=== PATIENT | female | born 1945 | race Caucasian/White ===

== ENCOUNTER 2022-11-15 06:29 | Inpatient (IN) | payer MEDICARE, OTHER, SELFPAY ==
[2022-10-27 12:47] VITALS: BMI 29.0
[2022-10-28 09:44] VITALS: BMI 29.0
[2022-11-15] VITALS (13 sets, daily range): BP systolic 84–139; BP diastolic 38–66; PULSE 67–95; RESP 12–18; TEMP 35.6–36.4; O2SAT 95–100; BMI 29.0
[2022-11-15] MEDS: LACTATED RINGERS 1,000 ML 42 ML IV (07:33)
[2022-11-15] MEDS: VANCOMYCIN 1,000 MG/200 ML PIGGYBACK 200 MG IV (07:38)
--- NOTE | 2022-11-15 07:47 | DI.RAD.S_ITS ---
PROCEDURE: XR HIP W PEL IF DONE RT 2V INDICATIONS: inner op TECHNIQUE: 4 intraoperative fluoroscopic images obtained. COMPARISON: [facility], [place], XR HIP W PEL IF DONE RT 2V, 11/15/2022, 11:01. FINDINGS: Four intraoperative fluoroscopic images from right hip arthroplasty. IMPRESSION: Intraprocedural fluoroscopy was provided for guidance and anatomical localization. Please see the procedure report for further details. Dictated by: Goyo Mcgraw M.D. on 11/15/2022 at 15:39 Approved by: Goyo Mcgraw M.D. on 11/15/2022 at 15:42
--- NOTE | 2022-11-15 07:47 | PM.PREOP ---
Pre-operative Note Interval Note History & Physical reviewed/Exam performed by Physician: Yes Changes to H&P: No
[2022-11-15] MEDS: CEFAZOLIN 2 GM/100 ML PREMIX 100 ML IV ×2 (07:50→15:13)
--- NOTE | 2022-11-15 07:54 | P.OP_ITS ---
Operative Date/Time/Diagnoses Date of procedure: 11/15/22 Time of procedure: 07:54 Pre-op diagnosis: Severe right hip OA and AVN Post-op diagnosis: same Procedure & Clinicians Procedure: Right total hip arthroplasty anterior approach Same procedure as scheduled: Yes Indications: The patient has had progressively worsening right hip pain with radiographic changes consistent with arthritis. Non-operative management has failed and the patient has requested total hip replacement. The risks, benefits and alternatives to surgery were discussed with the patient prior to proceeding. Risks discussed included, but were not limited to, failure to relieve pain, leg length discrepancy, dislocation, stiffness, infection, nerve damage, deep venous thrombosis, pulmonary embolism, stroke, coma, heart attack, permanent paralysis and , as well as the potential need for eventual revision of the prosthetic. Surgeon: Kathya Hernandez [employer] Technician: Melvin Jimenez Anesthesia Type: General Operative Notes Findings: Severe right hip OA with AVN, soft bone, adequate stability Closure Type: primary Specimen(s): none sent Prosthetic devices, grafts, tissues, transplants, or devices: Hernandez and nephew R3 46, dual mobility neutral liner 34 x 46, anthology size 2 standard offset, 22 by 34 dual mobility insert, 22+ 0 Oxinium head, one 6.5 mm screw Estimated Blood Loss (mL): 250 Blood products transfused: none Procedure in detail: The patient was brought to the operating room. Patient was carefully positioned in the supine position. Time-out was performed and antibiotics were given. Anesthesia was induced. She was positioned in the on the table in order to allow hyperextension of the hip. The right lower extremity was prepped and draped in a standard sterile fashion. An anterior right hip incision was made 1 fingerbreadth lateral to the anterior superior iliac spine and extended distally towards the greater trochanter. Dissection was carried out through skin and subcutaneous tissues. Superficial hemostasis was achieved. The fascia over the tensor fascia ashwin was defined and incised with a knife. Two Allis clamps were used to grasp the fascia. Tensor fascia ashwin was retracted laterally. A gelpi retractor was placed. Dissection was carried out down along the neck. The circumflex vessels were carefully identified and cauterized with the Aqua Mantis. A PA was used during the procedure was essential for intraoperative retraction and safe implantation of the components. There was good visualization of the femoral neck. A Cobra was placed superior to the neck and the gluteus fibers were carefully stripped from that superior aspect of the capsule. A 2nd retractor was placed along the inferior aspect of the neck. The rectus insertion along the capsule was partially released. A 3rd retractor that was then gently placed over the rim of the acetabulum under the rectus. Capsule was carefully incised and released from the intertrochanteric line circumferentially superior to the mid sagittal line and inferiorly to the mid sagittal line until the lesser trochanter was palpable. A tag stitch was placed both in the superior and inferior limb of the capsular insertion. Along the acetabulum capsule was also released up to the mid sagittal 12:00 position. A portion of the labrum was resected. A saw was used to perform an osteotomy at the level of the intertrochanteric line and the junction of the superior femoral neck leaving approximately 1 finger breath of residual inferior neck above the lesser trochanter. A 2nd cut was made along the femoral neck at the base of the head and a napkin ring of neck was removed. Corkscrew was placed in the femoral head and the head was removed without difficulty. Retractors were then repositioned around the acetabulum. Residual labrum was resected and additional osteophytes were removed. A reamer that was 4 mm below the templated size was placed by hand in the acetabulum and it was reamed to centralize the acetabulum. It was then reamed up to 2 under the templated size and fluoroscopy was brought in to confirm the position of the reaming and depth of reaming. I reamed 1 under the anticipated size. A trial cup was placed and noted that it was appropriately sized and fluoroscopy confirmed position and depth. The component was open and inserted without difficulty fluoroscopic imaging was used to confirm that the cup had been kwaku quately seated and was well positioned. I meticulously attempted to adjust the position in order to allow flexion and full range of motion considering the patient's severe stiff spine. It was further stabilized with a single screw. Oxinium dual mobility liner was placed. The cup was tested and noted to be stable. Attention was then directed to the femur. The femur was gently hyperextended additional capsular release was performed as needed in order to allow adequate visualization of the proximal femur with elevation of the femur. Patient was placed in a hyperextended slightly adducted position with maximum external rotation. Box osteotome was used to check for any residual neck as well as sclerotic bone along the trochanter. [employer] pepper was placed in the femur. Additional broaching was performed. Canal finder was used to determine the alignment of the canal and position. Size 1 broach was placed. The canal was then appropriately broached up to the templated size as long as there was adequate stability of the broach and serial advancement of the broach without excessive impingement. Specific attention was directed at avoiding varus attempting to direct the distal aspect of the broach more anteriorly and avoiding excessive anteversion. She had a fairly small femur. Trial reduction showed acceptable range of motion, good stability, no posterior impingement, synagogue of leg length and appropriate lateral shuck. I also hyperflexed the hip and checked that there was no impingement anteriorly and there was good stability with flexion, adduction and internal rotation. Marcaine and Exparel were injected. The stem was placed without difficulty. Repeat trial reduction and x-ray showed acceptable overall position, length, and no evidence of the femoral fracture. Final head was placed. Wound was meticulously irrigated with normal saline. The hip was reduced and additional Exparel and Marcaine were injected. The capsule was closed with interrupted nonabsorbable sutures. The fascia of the tensor was closed with interrupted and running Vicryl. No drain was placed. Any tensor fascia ashwin muscle that appeared to be contused or injured which was a minimal amount was carefully resected. Capsule around the tensor was injected with Exparel and Marcaine. The skin was closed with barbed stitches for the subcutaneous tissue and skin. We also used surgical glue. The wound was dressed sterilely. Brief Betadine soak was also used and was meticulously irrigated with normal saline. Patient was transferred to recovery room in satisfactory condition. Complications: none Post-operative Condition: stable Disposition: Acute Care Plan for aftercare: The patient will be maintained on a standard total hip replacement protocol with weight bearing as tolerated and anterior hip precautions. The patient will receive Aspirin and sequential compression devices for DVT prophylaxis. The patient will be discharged home when safe for the home environment.
[2022-11-15] MEDS: TRANEXAMIC ACID 1,000 MG VIAL 2000 MG INJ ×2 (07:59→10:14)
--- NOTE | 2022-11-15 08:21 | SUR.OPER ---
Patient supine on padded [place] table, one arm on padded arm board at <90, other arm padded and secured with tape across patient's chest, both legs secured in padded traction boots and positioned per surgeon, padded post at patient's groin, pressure points checked and padded.
[2022-11-15] MEDS: BUPIVACAINE LIPOSOME 266 MG/20 ML VIAL INJ (08:33)
[2022-11-15] MEDS: BUPIVACAINE 0.25% (PF) 60 ML, EPINEPHrine 0.3 MG INJ (08:34)
[2022-11-15] MEDS: ACETAMINOPHEN IV 1,000 MG/100 ML VIAL 400 MG IV (08:41)
[2022-11-15] MEDS: SODIUM CHLORIDE IRRIG SOLUTION 250 ML, POVIDONE-IODINE SPONGE STICKS 1 APPLIC IRR (10:37)
--- NOTE | 2022-11-15 11:00 | DI.RAD.S_ITS ---
PROCEDURE: XR HIP W PEL IF DONE RT 2V INDICATIONS: RIGHT ANTERIOR HIP POST OP TECHNIQUE: AP pelvis and lateral view of the right hip acquired. COMPARISON: [facility], [place], XR HIP W PEL IF DONE RT 2V, 11/15/2022, 9:15. FINDINGS: Bones: Patient is status post right hip arthroplasty, with hardware components in expected positions. The hip joint appears congruent. The visualized bony structures appear intact. Soft tissues: Overlying postoperative changes are noted. No suspicious soft tissue densities. IMPRESSION: Expected postop appearance of a right hip arthroplasty. Dictated by: Hosea Garcia M.D. on 11/15/2022 at 14:13 Approved by: Hosea Garcia M.D. on 11/15/2022 at 14:13
[2022-11-15] MEDS: HYDROMORPHONE 2 MG INJ IV (11:04)
[2022-11-15] MEDS: fentaNYL 100 MCG/2 ML INJ (11:06)
[2022-11-15] MEDS: OXYCODONE IR 5 MG TABLET PO ×2 (11:08→15:14)
[2022-11-15] MEDS: ONDANSETRON 4 MG/2 ML INJ IV (11:10)
[2022-11-15] MEDS: hydrOXYzine pamoate 25 MG CAPSULE PO (11:29)
--- NOTE | 2022-11-15 11:45 | SUR.PHASEI ---
Pt bladder scanned before leaving PACU with amt. 260mls. Pt does not have the urge to void at this time.
--- NOTE | 2022-11-15 12:12 | PC.NURSE ---
Pt to room 225 via bed from PACU. Pt awake, alert, and oriented. Pt denies pain or nausea. IV infusing as ordered. SCD's on and running. Pt oriented to room, call light, tv controls, and bed controls. Family is at the bedside. Bed alarm on for safety-Pt agrees to call for assistance as needed and to not get up without help.
[2022-11-15] MEDS: LACTATED RINGERS 1,000 ML 100 ML IV ×2 (12:32→21:33)
[2022-11-15] MEDS: IBUPROFEN 400 MG TABLET PO ×3 (12:33→21:20)
--- NOTE | 2022-11-15 14:56 | PT.IIE ---
Current Diagnoses Unilateral primary osteoarthritis, right hip (11/15/22) Surgery Performed Operation Date: 11/15/22 07:45 Actual Procedures p Total Hip Arthroplasty/Anterior Approach(Right) - Kathya Hernandez MD Surgical History (Last Updated 10/27/22 @ 13:28 by Anna Zepeda, KYLEE) History of hysterectomy History of lumbar fusion History of right oophorectomy History of total left knee replacement Hx of breast reduction, elective Hx of fusion of cervical spine Medical History (Last Updated 10/28/22 @ 08:42 by Manda Juan RN) Diabetes GERD (gastroesophageal reflux disease) High triglycerides History of loya Hx of Sjogren's disease Hypoxia ELEUTERIO treated with BiPAP Oxygen dependent PMR (polymyalgia rheumatica) Physical Therapy Inpatient Evaluation/Re-Eval M1 PT/OT-IP Prior Functional Status Start: 11/15/22 15:57 Freq: NEEDED Status: Active Protocol: Document 11/15/22 14:56 AB (Rec: 11/15/22 16:22 AB [id number]) Medical Review Prior Functional Status Medical History Reviewed Yes Communication able to make needs known Mobility and Gait pt stated that she is modified independent with all mobilities and ambulation without AD indoors but uses a 4WW for outdoor mobility Social History Household Members spouse,children Living Arrangements Mobile home Number of Floors (Floors) One Floor Number of Stairs To Enter/Railing? ramp to enter Home Environment Standard Height Toilet,Walk in Shower,Built-In Shower Seat Home Equipment Front Wheel Walker,Four Wheel Walker,Hand Held Shower Additional Social History Comment pt has her spouse and daughter to assist her at home M2 PT-IP Current Condition Start: 11/15/22 15:57 Freq: NEEDED Status: Active Protocol: Document 11/15/22 14:56 AB (Rec: 11/15/22 16:22 AB [id number]) Physical Therapy Current Condition Current Condition Evaluation Date 11/15/22 Treatment Diagnosis s/p R JOSIANE anterior approach; difficulty in walking Onset Date 11/15/22 M3 PT-IP Subjective Start: 11/15/22 15:57 Freq: NEEDED Status: Active Protocol: Document 11/15/22 14:56 AB (Rec: 11/15/22 16:22 AB [id number]) Subjective Physical Therapy Visit Type Type Initial Evaluation Visit Start Time 14:56 Visit Stop Time 15:55 Total Visit Minutes 59 Number of BALL RACKER Visits 0 Physical Therapy Visit Comments Patient Comments agreeable to do PT Therapy Pain Assessment Pain When Pain Assessed At Rest Pain Present Pain Present Pain Reported Location Right Hip Intensity 7 Scale Used Numeric (0 - 10) Pain Management Techniques Distraction,Modification of Treatment,Re-positioning, Timing of Activity with Medications M4 PT-IP Mobility and Gait Start: 11/15/22 15:57 Freq: NEEDED Status: Active Protocol: Document 11/15/22 14:56 AB (Rec: 11/15/22 16:22 AB [id number]) PT-Bed Mobility Assessment Rolling Type of Rolling Log Rolling Level of Assist Moderate Assistance,1 Person Assistance Supine to Sit Supine to Sit Moderate Assistance,1 Person Assistance,Bedrails Sit to Supine Sit to Supine Maximum Assistance,1 Person Assistance Scooting Scooting to Edge of Bed Maximum Assistance PT-Transfer Assessment Sit to and From Stand Sit to and from Stand Minimal Assistance,1 Person Assistance,Use of Upper Extremities Equipment Transfer Assistive Device Gait Belt,Front Wheeled Walker Orthotic/Prosthetic Devices or Brace: No Transfers Transfer Destination Toilet Transfer Technique ambulated Transfer Ability Level of Assist Minimal Assistance,Moderate Assistance,1 Person Assistance ,Use of Upper Extremities Comments Mobility Comments pt agreeable to do PT. spouse in room. educated pt and spouse regarding anterior hip precautions. pt able to recall 2/2 after education. BP in supine: 123/49. pt stated that she has h/o back sx and does log roll for bed mobility. completed supine to sit mod A and max cues. able to sit on EOB CGA. BP: 121/ 49. pt completed sit to stand min A. pt requesting to use the toilet. ambulated to the toilet using FWW min A and cues. c/o nausea after ambulation. BP checked: 113/ 41. pt completed toileting CGA. sit to stand from the toilet using grab bar min A. chair positioned close to pt and pt able to take steps towards the chair using FWW min A. assisted pt back to the bed. completed sit to stand from the chair min A and transfer to EOB mod A and max cues. completed sit to supine max A and max cues. positioned pt in bed. BP checked: 123/49. call light and table placed witin reach. daughter will be staying with pt overnight and agreed to do PT. caregiver training set up for tomorrow at 9 am. Gait Assessment Gait Gait Assistance Required: Minimum Assistance,Moderate Assistance Distance (Feet) 20 Able to Maintain Weight Bearing Status Yes During Gait Assistive Devices Assistive Device Gait Belt,Front Wheeled Walker Orthotic/Prosthetic Devices or Brace: No Gait Deviations General Gait Pattern Antalgic Factors Limiting Gait Function Factors Limiting Gait Function Decreased Activity Tolerance, Decreased Strength,Limited Range of Motion,Pain,Poor Balance,Poor Safety Awareness PT-Balance Assessment Sitting Balance and Reactions Static Sitting Balance Ability Normal Dynamic Sitting Balance Ability Good Standing Balance and Reactions Static Standing Balance Ability Fair Dynamic Standing Balance Ability Fair Device Used FWW M5 PT-IP Objective Assessments Start: 11/15/22 15:57 Freq: NEEDED Status: Active Protocol: Document 11/15/22 14:56 AB (Rec: 11/15/22 16:22 AB [id number]) Orientation Orientation/Cognition Level of Alertness Alert Orientation Name,Place,Situation Language Function Ability No Deficits Noted Safety Awareness Decreased Safety Awareness Memory Description Short Term Impaired Gross Range of Motion Lower Extremity ROM Assessment Within Functional Limits Strength Lower Extremity Strength Assessment Right Impaired Hip 3+/5 Knee 4-/5 Sensation Assessment Sensation Gross Sensation WNL Muscle Tone Muscle Tone WNL Yes M6 PT-IP Treatment Start: 11/15/22 15:57 Freq: NEEDED Status: Active Protocol: Document 11/15/22 14:56 AB (Rec: 11/15/22 16:22 AB [id number]) Physical Therapy Treatment Education Education Provided Precautions,Weight Bearing Status,Post-Op Packet,Safety M7 PT-IP Assessment and Plan Start: 11/15/22 15:57 Freq: NEEDED Status: Active Protocol: Document 11/15/22 14:56 AB (Rec: 11/15/22 16:22 AB [id number]) PT Summary Assessment and Plan Potential Rehabilitation Potential Fair Status of Condition at Evaluation Evolving Summary Impairments Pain,ROM,Strength,Balance, Coordination,Sensation,Tone, Cognition,Bed Mobility, Transfers,Gait,Activity Tolerance Assessment Summary pt s/p R JOSIANE anterior approach POD 0 and pt is WBAT. pt requiring mod to max A for bed mobility, min to mod A for transfers/ambulation using FWW . Has h/o nausea affecting mobility. pt will have her family to assist her at home. caregiver training set up for tomorrow at 9am. will continue to assess progress. Goals Bed Mobility Goal Standby Assistance Transfer Goal Standby Assistance,Front Wheeled Walker Gait Goal Standby Assistance,Front Wheel Walker Gait Distance 200 Days to Meet Goals 5 Frequency of Treatment Frequency Of Treatment Twice a Day Treatment Plan Physical Therapy Treatment Plan Bed Mobility Training,Transfer Training,Gait Training, Therapeutic Exercise,Balance Retraining,Post Op Education, Discharge Planning,Hot or Cold Pack,Neuromuscular Re-ed, Coordination Retraining,Manual Therapy Precautions Anterior Hip Precautions No Hip Extension,No Hip External Rotation Weight Bearing Status Weight Bearing Status Weight Bear as Tolerated Allowed Weight Bearing Amount (enter % RLE WBAT or #) (%) Recommendations To Nursing Amount of Assist Needed 1 Person Assist Discharge Recommendations PT Discharge Recommendations Home with Assistance, Outpatient PT Transportation Needs at Discharge Private Vehicle,Wheelchair/ Cabulance
[2022-11-15] MEDS: ACETAMINOPHEN 325 MG TABLET 650 MG PO ×2 (15:13→21:19)
[2022-11-15] MEDS: methocarbamoL 500 MG TABLET 750 MG PO ×2 (15:14→21:19)
[2022-11-15] MEDS: GABAPENTIN 300 MG CAPSULE 900 MG PO (21:19)
[2022-11-15] MEDS: ASPIRIN EC 81 MG TABLET PO (21:19)
[2022-11-15] MEDS: diazePAM 5 MG TABLET PO (21:20)
[2022-11-15] MEDS: BUDESONIDE 0.5 MG/2 ML NEB INH (21:42)
[2022-11-15] MEDS: ALBUTEROL 2.5 MG/3 ML NEB (ADULT) INH (21:43)
[2022-11-16 00:19] VITALS: BP 118/46; PULSE 83; RESP 18; TEMP 36.2; O2SAT 97
[2022-11-16] MEDS: OXYCODONE IR 5 MG TABLET PO ×3 (00:20→13:25)
[2022-11-16] MEDS: CEFAZOLIN 2 GM/100 ML PREMIX 100 ML IV (00:20)
[2022-11-16] MEDS: IBUPROFEN 400 MG TABLET PO ×4 (00:20→11:50)
[2022-11-16] MEDS: ACETAMINOPHEN 325 MG TABLET 650 MG PO ×2 (03:54→09:05)
[2022-11-16 04:33] LABS: Hematocrit 32.1 % (36-46); Hemoglobin 11.3 g/dL (12.0-16.0)
[2022-11-16] MEDS: PANTOPRAZOLE DR 20 MG TABLET PO (05:27)
[2022-11-16 05:37] VITALS: BP 101/42; PULSE 77; RESP 16; TEMP 35.9; O2SAT 96
[2022-11-16] MEDS: BUDESONIDE 0.5 MG/2 ML NEB INH (07:40)
[2022-11-16] MEDS: ALBUTEROL 2.5 MG/3 ML NEB (ADULT) INH (07:40)
[2022-11-16 07:47] VITALS: PULSE 83; RESP 16
[2022-11-16] MEDS: GABAPENTIN 300 MG CAPSULE 900 MG PO (08:51)
[2022-11-16] MEDS: ASPIRIN EC 81 MG TABLET PO (08:51)
[2022-11-16] MEDS: glipiZIDE 5 MG TABLET 20 MG PO (08:51)
[2022-11-16] MEDS: DOCUSATE 100 MG CAPSULE PO (08:51)
[2022-11-16] MEDS: FUROSEMIDE 20 MG TABLET 40 MG PO (08:52)
--- NOTE | 2022-11-16 08:55 | P.DS_ITS ---
History of Present Illness History of Present Illness Chief complaint: Right Total Hip Arthroplasty/Anterior 11/15 Narrative: Patient is resting comfortably in bed this morning with daughter at bedside. Patient notes that the hip is not painful when she is lying in bed, experiences some pain when ambulating with walker. She notes that pain is well managed with medication. Patient and daughter relate that patient lives in a 1 level home with a ramp to enter. Patient denies fever, chills, chest pain, shortness of breath, nausea, vomiting. Discharge Providers Provider Date of admission: 11/15/22 06:29 Discharge Date: 11/16/22 Primary care physician: Fuentes Schmidt MD Consults: 10/28/22 08:53 Consult to Anesthesiology Routine Comment: Consulting Provider: Anesthesiologist Reason for consultation: Surgeon requested re: Pulmonary 11/15/22 07:47 Consult to Anesthesiology Routine Comment: Consulting Provider: Anesthesiologist Reason for consultation: Regional block for post operative pain control 11/15/22 11:55 Consult to Discharge Planning Routine Comment: Consult to Occupational Therapy Evaluate & Treat Comment: Physician Instructions: Evaluate and treat Consult to Physical Therapy Evaluate & Treat Comment: Physician Instructions: post op JOSIANE protocol Discharge provider: Malathi Goff PA-C Summary Hospital Course Discharge Diagnosis: Status post right total hip arthroplasty Hospital Course: Operative Date/Time/Diagnoses Date of procedure: 11/15/22 Time of procedure: 07:54 Pre-op diagnosis: Severe right hip OA and AVN Post-op diagnosis: same Procedure & Clinicians Procedure: Right total hip arthroplasty anterior approach Same procedure as scheduled: Yes Indications: The patient has had progressively worsening right hip pain with radiographic changes consistent with arthritis. Non-operative management has failed and the patient has requested total hip replacement. The risks, benefits and alternatives to surgery were discussed with the patient prior to proceeding. Risks discussed included, but were not limited to, failure to relieve pain, leg length discrepancy, dislocation, stiffness, infection, nerve damage, deep venous thrombosis, pulmonary embolism, stroke, coma, heart attack, permanent paralysis and , as well as the potential need for eventual revision of the pros thetic. Surgeon: Kathya Hernandez Rotary Shear Worker Helper: Melvin Jimenez Anesthesia Type: General Operative Notes Findings: Severe right hip OA with AVN, soft bone, adequate stability Closure Type: primary Specimen(s): none sent Prosthetic devices, grafts, tissues, transplants, or devices: Hernandez and nephew R3 46, dual mobility neutral liner 34 x 46, anthology size 2 standard offset, 22 by 34 dual mobility insert, 22+ 0 Oxinium head, one 6.5 mm screw Estimated Blood Loss (mL): 250 Blood products transfused: none Status at Discharge Cognitive/behavioral status at discharge: oriented Functional status at discharge: uses cane/walker Overall status at discharge: patient is progressing back to baseline Exam Vital Signs (past 8 hours): - 11/16/22 05:37 11/16/22 07:47 Temperature 96.6 F L Pulse Rate 77 83 Respiratory Rate 16 16 Blood Pressure 101/42 L Pulse Oximetry 96 Oxygen Delivery Method Room Air Oxygen Flow Rate 0 Oxygen Delivery Method Room Air Oxygen Flow Rate 0 Narrative Exam Narrative: 77-year-old female. Awake, alert, and oriented. Intraoperative dressing clean, dry, and intact. Strength and sensation intact to bilateral lower extremities. Bilateral calves soft, compressible, nontender with no palpable cords or masses. Objective Labs 11/16/22 04:10 Labs: Laboratory Results - last 24 hr 11/16/22 04:10 Hgb 11.3 L Hct 32.1 L PFSH Medical History Diabetes GERD (gastroesophageal reflux disease) High triglycerides History of loya Hx of Sjogren's disease Hypoxia ELEUTERIO treated with BiPAP Oxygen dependent PMR (polymyalgia rheumatica) Surgical History History of hysterectomy History of lumbar fusion History of right oophorectomy History of total left knee replacement Hx of breast reduction, elective Hx of fusion of cervical spine Social History household members: spouse and children Smoking Status: Former smoker alcohol intake: current Discharge Assessment & Plan Assessment and Plan Assessment: Patient is progressing as expected following right total hip arthroplasty. Patient is on oxygen at baseline - followed by pulmonology, CPAP at night. Patient with good O2 saturation on room air currently. Has been afebrile, last blood pressure 101/42 mmHg and asymptomatic which is not concerning. Plan of Treatment: Patient to work with PT this morning and discharge home if safe and cleared for home environment (Ramp to enter, one level home). Standard postoperative care, hip precautions, weight-bearing as tolerated, ambulation with walker. Continue multimodal pain regimen, ice to hip as needed. Continue outpatient physical therapy. Keep dressing clean, dry, and intact until 2 week follow up with Orthopedics. Patient to use bed rails as she has ruled out of bed before, additional DME as needed. Postoperative prescriptions sent to patient's pharmacy. Discharge Plan Discharge Plan Patient Disposition: Home Provider Discharge Comment: Discharge once safe and cleared by PT Discharge orders & Medications Prescriptions: New oxycodone 5 mg Tablet 5 mg PO Q4-6H PRN (Reason: Pain, Moderate (4-6)) Qty: 40 0RF ibuprofen 400 mg Tablet 400 mg PO Q4H Qty: 120 0RF acetaminophen 325 mg Tablet 650 mg PO Q6H Qty: 120 0RF aspirin 81 mg Tablet,Delayed Release (Dr/Ec) 81 mg PO BID Qty: 84 0RF Continued glipizide 10 mg Tablet 20 mg PO DAILY diphenoxylate-atropine 2.5-0.025 mg Tablet 2 tab PO DAILY PRN (Reason: Diarrhea) simvastatin 40 mg Tablet 40 mg PO DAILY methocarbamol 750 mg Tablet 750 mg PO TID gabapentin 300 mg Capsule 900 mg PO BID omeprazole 20 mg Capsule,Delayed Release(Dr/Ec) 20 mg PO DAILY budesonide 0.5 mg/2 mL Suspension For Nebulization 0.5 mg INHALATION BID furosemide 20 mg Tablet 40 mg PO DAILY colestipol 1 gram Tablet 1 g PO BID diazepam 5 mg Tablet 5 mg PO BEDTIME arformoterol [Brovana] 15 mcg/2 mL Solution For Nebulization 2 ml INHALATION BID Myrbetriq 50 mg Tablet Extended Release 24 Hr 50 mg PO DAILY Discontinued oxycodone 5 mg Tablet 5 mg PO TID PRN (Reason: pain) Follow up/Referrals: Fuentes Schmidt MD [Primary Care Provider] - Kathya Hernandez MD [Physician] - As previously scheduled (Follow up with orthopedics 2 weeks after surgery as scheduled on 11/29/22) Diet/Activity/Treatments Diet: Diet as Tolerated Activity: Up and walking as tolerated Cold/Heat Therapy: Ice to hip as needed Skin/Wound/Dressing Care Report to your healthcare provider any signs of infection, such as:: chills, fever, night sweats, unusual drainage and unusual redness Dressing: Keep dressing intact until follow up with orthopedics. If dressing becomes saturated please call our office for dressing change Visit Report/Discharge Packet Instructions: DI for Hip Replacement, DI for Prescription Opioid Use Stand Alone Forms: Patient Portal/API, Stroke Signs & Symptoms, Surgery Discharge Discharge Data Primary Care Provider: Fuentes Schmidt
[2022-11-16] MEDS: methocarbamoL 500 MG TABLET 750 MG PO (09:05)
--- NOTE | 2022-11-16 09:15 | PT.IPTN ---
Current Diagnoses Unilateral primary osteoarthritis, right hip (11/15/22) Surgery Performed Operation Date: 11/15/22 07:45 Actual Procedures p Total Hip Arthroplasty/Anterior Approach(Right) - Kathya Hernandez MD Physical Therapy Treatment Note M2 PT-IP Current Condition Start: 11/15/22 15:57 Freq: NEEDED Status: Active Protocol: Document 11/15/22 14:56 AB (Rec: 11/15/22 16:22 AB [id number]) Physical Therapy Current Condition Current Condition Evaluation Date 11/15/22 Treatment Diagnosis s/p R JOSIANE anterior approach; difficulty in walking Onset Date 11/15/22 M3 PT-IP Subjective Start: 11/15/22 15:57 Freq: NEEDED Status: Active Protocol: Document 11/16/22 09:44 TS (Rec: 11/16/22 10:15 TS [id number]) Subjective Physical Therapy Visit Type Type Treatment Note Visit Start Time 09:15 Visit Stop Time 09:40 Total Visit Minutes 25 Notes Daughter present for caregiver training. Number of SENIOR CONTRACTS MANAGER Visits 1 Physical Therapy Visit Comments Patient Comments Pt found resting in bed, daughter in room, pt reports she's improven with her mobility since yesterday and agreeable to PT. Daughter is requesting a perscription for a bed rail to purchase from a medical store, information was passed to SW who will speak to her about bedrail later this morning. Daughter expressing concern about pt's R foot everting/ext rotated with gait, notified RN of pt's concern. Therapy Pain Assessment Pain When Pain Assessed During Mobility Pain Present Pain Present Pain Reported M4 PT-IP Mobility and Gait Start: 11/15/22 15:57 Freq: NEEDED Status: Active Protocol: Document 11/16/22 09:44 TS (Rec: 11/16/22 10:15 TS [id number]) PT-Bed Mobility Assessment Rolling Type of Rolling Log Rolling Level of Assist Contact Guard Assistance,1 Person Assistance Supine to Sit Supine to Sit Minimal Assistance,1 Person Assistance,Bedrails Sit to Supine Sit to Supine Moderate Assistance,1 Person Assistance,Head of Bed Elevated Scooting Scooting to Edge of Bed Maximum Assistance PT-Transfer Assessment Sit to and From Stand Sit to and from Stand Minimal Assistance,1 Person Assistance,Use of Upper Extremities Equipment Transfer Assistive Device Gait Belt,Front Wheeled Walker Orthotic/Prosthetic Devices or Brace: No Transfers Transfer Destination Toilet Transfer Technique ambulated Transfer Ability Level of Assist Standby Assistance,Contact Guard Assistance,1 Person Assistance,Use of Upper Extremities Comments Mobility Comments Pt found resting in bed, agreeable to PT. Logroll CGA to R side, pt demonstrates good carryover of sequencing. Supine to sit Eulalia with HOB elevated and asssitance from daughter for uprighting trunk. She scooted to EOB MaxA with transfer pad, provided cues for BUE support and pushing hips forward. Daughter donned gait belt prior to sit to stand w/FWW Eulalia. She ambulated to toilet ~10' CGA with slow step to gait. Sit to stand from toilet Eulalia from daughter with FWW and use of grab bar. She ambulated ~80' into hallway SBA with FWW and slow step to antalgic gait. Sit to supine into bed ModA for LEs, pt performed logroll SBA. Pt was left in bed with call light nearby, daughter in room, RN notified. Gait Assessment Gait Gait Assistance Required: Standby Assistance,Contact Guard Assist Distance (Feet) 90 Able to Maintain Weight Bearing Status Yes During Gait Assistive Devices Assistive Device Gait Belt,Front Wheeled Walker Orthotic/Prosthetic Devices or Brace: No Gait Deviations General Gait Pattern Antalgic Factors Limiting Gait Function Factors Limiting Gait Function Decreased Activity Tolerance, Decreased Strength,Limited Range of Motion,Pain,Poor Balance Comments Gait Comments See mobility comments. PT-Balance Assessment Sitting Balance and Reactions Static Sitting Balance Ability Normal Dynamic Sitting Balance Ability Good Standing Balance and Reactions Static Standing Balance Ability Good Dynamic Standing Balance Ability Fair Device Used FWW M5 PT-IP Objective Assessments Start: 11/15/22 15:57 Freq: NEEDED Status: Active Protocol: Document 11/15/22 14:56 AB (Rec: 11/15/22 16:22 AB [id number]) Orientation Orientation/Cognition Level of Alertness Alert Orientation Name,Place,Situation Language Function Ability No Deficits Noted Safety Awareness Decreased Safety Awareness Memory Description Short Term Impaired Gross Range of Motion Lower Extremity ROM Assessment Within Functional Limits Strength Lower Extremity Strength Assessment Right Impaired Hip 3+/5 Knee 4-/5 Sensation Assessment Sensation Gross Sensation WNL Muscle Tone Muscle Tone WNL Yes M6 PT-IP Treatment Start: 11/15/22 15:57 Freq: NEEDED Status: Active Protocol: Document 11/16/22 09:44 TS (Rec: 11/16/22 10:15 TS [id number]) Physical Therapy Treatment Education Education Provided Precautions,Weight Bearing Status,Post-Op Packet,Safety M7 PT-IP Assessment and Plan Start: 11/15/22 15:57 Freq: NEEDED Status: Active Protocol: Document 11/16/22 09:44 TS (Rec: 11/16/22 10:15 TS [id number]) PT Summary Assessment and Plan Potential Rehabilitation Potential Fair Summary Impairments Pain,ROM,Strength,Balance, Coordination,Sensation,Tone, Cognition,Bed Mobility, Transfers,Gait,Activity Tolerance Progress Towards Goals Progressing Toward Goals Assessment Summary Pt is progressing well with her mobility. Pt is Eulalia-MaxA for bed mobility, requires MaxA for scooting to EOB. She requires some tactile and verbal cues but does demonstrate some carryover of bed mobility sequencing. She is Eulalia for sit to stand with FWW, has no posterior leaning. She progressed her ambulation to ~90' CGA/SBA with slow step to antalgic gait, has no buckling or LOB. Daughter did well with pt in assisting her with her mobility and has experience of helping her mother recover from previous sugeries, also other family members will be assisting pt when she goes home. PT is recommending return home with assist. Goals Bed Mobility Goal Standby Assistance Transfer Goal Standby Assistance,Front Wheeled Walker Gait Goal Standby Assistance,Front Wheel Walker Gait Distance 200 Days to Meet Goals 5 Frequency of Treatment Frequency Of Treatment Twice a Day Treatment Plan Physical Therapy Treatment Plan Bed Mobility Training,Transfer Training,Gait Training, Therapeutic Exercise,Balance Retraining,Post Op Education, Discharge Planning,Hot or Cold Pack,Neuromuscular Re-ed, Coordination Retraining,Manual Therapy Precautions Anterior Hip Precautions No Hip Extension,No Hip External Rotation Weight Bearing Status Weight Bearing Status Weight Bear as Tolerated Allowed Weight Bearing Amount (enter % RLE WBAT or #) (%) Recommendations To Nursing Amount of Assist Needed 1 Person Assist Discharge Recommendations PT Discharge Recommendations Home with Assistance, Outpatient PT Transportation Needs at Discharge Private Vehicle
[2022-11-16 09:36] VITALS: BP 112/46; PULSE 89; RESP 16; TEMP 36.2; O2SAT 92
--- NOTE | 2022-11-16 10:30 | OT.IP.EVAL ---
Current Diagnoses Unilateral primary osteoarthritis, right hip (11/15/22) Surgery Performed Operation Date: 11/15/22 07:45 Actual Procedures p Total Hip Arthroplasty/Anterior Approach(Right) - Kathya Hernandez MD Past Medical History (Last Reviewed 11/16/22 @ 09:13 by Malathi Goff PA-C) Diabetes GERD (gastroesophageal reflux disease) High triglycerides History of loya Hx of Sjogren's disease Hypoxia ELEUTERIO treated with BiPAP Oxygen dependent PMR (polymyalgia rheumatica) Surgical History (Last Reviewed 11/16/22 @ 09:13 by Malathi Goff PA-C) History of hysterectomy History of lumbar fusion History of right oophorectomy History of total left knee replacement Hx of breast reduction, elective Hx of fusion of cervical spine Occupational Therapy Inpatient Evaluation/Re-Eval M1 PT/OT-IP Prior Functional Status Start: 11/16/22 11:22 Freq: NEEDED Status: Active Protocol: Document 11/16/22 10:20 [facility] (Rec: 11/16/22 11:37 [facility] [id number]) Medical Review Prior Functional Status Medical History Reviewed Yes Communication able to make needs known Mobility and Gait pt stated that she is modified independent with all mobilities and ambulation without AD indoors but uses a 4WW for outdoor mobility Activities of Daily Living and IADL's Pt having pain with ADL and IADL needs. Social History Household Members spouse,children Living Arrangements Mobile home Number of Floors (Floors) One Floor Number of Stairs To Enter/Railing? ramp to enter Home Environment Standard Height Toilet,Walk in Shower,Built-In Shower Seat Home Equipment Front Wheel Walker,Four Wheel Walker,Hand Held Shower Additional Social History Comment pt has her spouse and daughter to assist her at home M2 OT-IP Current Condition Start: 11/16/22 11:22 Freq: Status: Active Protocol: Document 11/16/22 10:20 [facility] (Rec: 11/16/22 11:37 [facility] [id number]) Occupational Therapy Current Condition Current Condition Evaluation Date 11/16/22 Treatment Diagnosis S/p RTHA anterior approach Post Operative Precautions Anterior Hip Precautions No Hip Extension,No Hip External Rotation M3 OT- IP Subjective and Pain Start: 11/16/22 11:22 Freq: Status: Active Protocol: Document 11/16/22 10:20 [facility] (Rec: 11/16/22 11:37 [facility] [id number]) OT- Subjective Occupational Therapy Visit Type Type Initial Evaluation Visit Start Time 10:20 Visit Stop Time 10:30 Total Visit Minutes 10 Occupational Therapy Visit Comments Patient Comments Pt not wanting to get up but agreed to go over OT needs and equipment. Patient/Caregiver Goals To go home. OT Pain Assessment Pain When Pain Assessed At Rest Pain Present Pain Present Denied Pain M4 OT- IP ADL's Start: 11/16/22 11:22 Freq: Status: Active Protocol: Document 11/16/22 10:20 [facility] (Rec: 11/16/22 11:37 [facility] [id number]) OT ADL-Grooming Comments OT Grooming Comments Not performed OT ADL-Oral Care Comments Oral Care Comments Not performed OT ADL-Dressing Comments OT Dressing Comments Pt states wanting to wait to get dressed until her comes. Pt educated to be sure not to cross her right leg over. Pt states will not wear socks at home. OT ADL-Toileting Comments OT Toileting Comments Pt's toilet is 40ft away and strongly recommended pt have a BSC and assist. OT ADL-Bathing Comments OT Bathing Comments Not performed, pt's daughter to be able to assist. M5 OT- IP IADL's Start: 11/16/22 11:22 Freq: Status: Active Protocol: Document 11/16/22 10:20 [facility] (Rec: 11/16/22 11:37 [facility] [id number]) OT-Instrumental Activities of Daily Living Deficits IADL Deficits Identified No Deficits Home Safety Awareness Awareness of Need for Assistance at Home Good Awareness Home Safety Comments Pt has a supportive spouse adn daughter to assist. Meal Preparation Meal Preparation Caregiver Provides Assist Tractor Expert Tractor Expert Caregiver Provides Assist M6 OT- IP Functional Cognition Start: 11/16/22 11:22 Freq: Status: Active Protocol: Document 11/16/22 10:20 [facility] (Rec: 11/16/22 11:37 [facility] [id number]) Cognitive Factors Limiting Selfcare Function Cognitive Ability Level of Alertness Alert Patient Orientation Name,Place,Situation Attention Span Ability Capable of Focused Attention, Capable of Sustained Attention Ability to Follow Commands Able to Follow One Step Commands Cognitive Comments Cognitive Assessment Comments Pt able to recall her hip precautions and also able to states what to do doing examples given for ADL and mobility needs accurately. M7 OT- IP Mobility and Balance Start: 11/16/22 11:22 Freq: Status: Active Protocol: Document 11/16/22 10:20 [facility] (Rec: 11/16/22 11:37 [facility] [id number]) OT-Transfer Assessment Comments Mobility Comments Pt states has been falling out of bed and insistent that she was told to get a prescription so able to get a bed rail provided for her. Case management is aware and also gave pt options of where to get a bed rail. M9 OT- IP Assessment and Plan Start: 11/16/22 11:22 Freq: Status: Active Protocol: Document 11/16/22 10:20 [facility] (Rec: 11/16/22 11:37 [facility] [id number]) OT Summary Assessment and Plan Potential Rehabilitation Potential Good Analytic Complexity at Evaluation Low Summary OT Impairments Functional Mobility,Dressing, Toileting,Bathing Progress Towards Goals Progressing Toward Goals Assessment Summary Pt low complexity and main barrier are needing assist for bed mobility needs and and now for ADL's. Pt's spouse and daughter to assist her at home and to go home when medically stable. Goals Grooming Goal Independent Dressing Goal Minimal Assistance Toileting Goal Standby Assistance Bathing Goal Standby Assistance Toilet Transfer Goal Independent Shower Transfer Goal Standby Assistance Days to Meet Goals 5 Frequency of Treatment Frequency Of Treatment Once a Day Treatment Plan OT Treatment Plan ADL Training,Functional Mobility,Patient/Family Education,Discharge Planning Discharge Recommendations OT Discharge Recommendations Home with Assistance, Outpatient PT Home Equipment Needs BSC Transportation Needs at Discharge Private Vehicle
--- NOTE | 2022-11-16 14:01 | PC.NURSE ---
Pt is dressed and ready for discharge home with Spouse and Daughter. IV has been removed. Went over d/c instructions with Pt and Family-discussed d/c meds, time of last dose, reviewed stroke education, hip precautions, showering, drinking fluids to prevent constipation or dehydration, dsg to back and follow up. Pt denied further questions and was taken out via w/c by RN to POV with Family and all belongings.
== END 2022-11-16 14:05 | disposition home or self-care (01) | DRG 470 ==
PROVIDERS: Admitting Provider Orthopaedic Surgery; PCP Internal Medicine; Referring Provider Orthopaedic Surgery; Visit Provider Orthopaedic Surgery
PROC: 0SR90JA Replacement of Right Hip Joint with Synthetic Substitute, Uncemented, Open Approach (ICD-10-PCS; CPT 27130; principal; 2022-11-15 07:45)
DX: M16.11 Unilateral primary osteoarthritis, right hip (principal); M87.9 Osteonecrosis, unspecified; E11.9 Type 2 diabetes mellitus without complications; G47.33 Obstructive sleep apnea (adult) (pediatric); K21.9 Gastro-esophageal reflux disease without esophagitis; E78.1 Pure hyperglyceridemia; Z99.81 Dependence on supplemental oxygen; Z79.84 Long term (current) use of oral hypoglycemic drugs
CPT/HCPCS: 36415; 73502; 76000; 82962; 85014; 85018; 94640; 97116; 97162; 97165; 97530; C1776; C9290; J0131; J0171; J0690; J1170; J2405; J2704; J3010; J7613